=== PATIENT | female | born 1945 | race Caucasian/White ===

== ENCOUNTER → 2017-01-20 | Outpatient (CLI) | payer MEDICARE, BC ==
[~2017-01-20] MED LIST: DIOVAN; LIPITOR; LISINOPRIL20 MG PO; LODINE; NEXIUM PO
--- NOTE | ~2017-01-20 | MY11 ---
[facility] A Service [facility] RADIOLOGY TEXT RESULTS PATIENT: DAQUAN HOLLIDAY LOCATION: [facility] : [birth year] UNIT #: [id number] AGE: [address]: Jaskaran Barraza MD SEX: F ORDER DR: [id number] [facility]. [place], [place] [address] [id number] O MR#: [id number] Acc #: [id number] NAME: DAQUAN HOLLIDAY : 1945 SEX: F STUDY DATE/TIME: 01/20/2017 8:43 UNIT: [facility] ROOM: STUDY DESCRIPTION: MY Mammogram Screening Dig Titus Attending Physician: Jaskaran Barraza M.D. Referring Physician: Jaskaran Barraza M.D. Ordering Physician: Jaskaran Barraza M.D. Primary Care Physician: Jaskaran Barraza M.D. MEDICAL IMAGING REPORT This report is preliminary unless electronic signature is present EXAM Bilateral digital screening mammogram with CAD. DATE 01/20/2017 HISTORY 71-year-old female with a family history of breast cancer. No personal history of breast cancer. No current complaints. COMPARISON Bilateral screening mammogram 01/14/2016, 01/03/2015, 01/15/2014. TECHNIQUE CC and MLO views were obtained of each breast utilizing digital technique and reviewed with an FDA-approved CAD device. FINDINGS Scattered fibroglandular densities are present bilaterally. Nodular densities in the central third of the left breast on the CC view, slightly below the nipple line on the MLO view, are not thought to be significantly changed. No new or suspicious nodules are identified. Benign appearing calcifications are present bilaterally. No architectural distortion. No suspicious clustered microcalcifications. No abnormal skin thickening or nipple retraction. IMPRESSION BIRADS 2, benign findings. Nodular densities within the central left breast appear unchanged compared to a more remote examination from 01/01/2014, in keeping with benign findings. There are no new features to suggest malignancy. Routine bilateral screening mammogram is recommended in 1 year. [facility] A Service [facility] RADIOLOGY TEXT RESULTS PATIENT: DAQUAN HOLLIDAY LOCATION: [facility] : 49 UNIT #: [id number] AGE: [address]: Jaskaran Barraza MD SEX: F ORDER DR: Patients over the age of 40 are entered into a reminder system with target due date for the next mammogram. A result letter will also be sent to the patient. BIRADS: 2 Benign finding. Dictated by... Jazzy Francis M.D. THIS IS AN ELECTRONICALLY VERIFIED REPORT Jazzy Francis M.D. at 01/21/2017 7:03 AM GENESIS/monae TD: 01/20/2017 12:15 JOB #: [id number] MEDICAL IMAGING REPORT Page 1 of 1 COPY
== END | disposition home or self-care (01) ==
LOC: CWCC 08:20
DX: Z12.31 Encounter for screening mammogram for malignant neoplasm of breast (principal); Z80.3 Family history of malignant neoplasm of breast; N63 Unspecified lump in breast
CPT/HCPCS: G0202

== ENCOUNTER → 2017-04-05 | Outpatient (CLI) | payer MEDICARE, BC ==
--- NOTE | ~2017-04-05 | BD1 ---
[facility] A Service of [facility] & [facility] RADIOLOGY TEXT RESULTS PATIENT: DAQUAN HOLLIDAY LOCATION: [facility] : 49 UNIT #: [id number] AGE: [address]: Jaskaran Barraza MD SEX: F ORDER DR: [id number] [facility] [address] [place], [place] [address] [id number] O MR#: [id number] Acc #: [id number] NAME: DAQUAN HOLLIDAY : 1945 SEX: F STUDY DATE/TIME: 04/05/2017 9:52 UNIT: [facility] ROOM: STUDY DESCRIPTION: BD Dexa Bone Dens 1+ Site Attending Physician: Jaskaran Barraza M.D. Ordering Physician: Jaskaran Barraza M.D. Primary Care Physician: Jaskaran Barraza M.D. MEDICAL IMAGING REPORT This report is preliminary unless electronic signature is present EXAM DXA scan 04/05/2017 HISTORY Status post menopause with no hormone replacement therapy. Osteopenia. Hysterectomy at age 37 with removal of both ovaries. Family history of breast carcinoma. Hypertension with blood pressure medication for 10 years. FINDINGS Bone mineral density in the lumbar spine from L1-L4 was 1.034 g/cm2 which is 0.1 standard deviations below the mean when compared to the young adult reference population which is within the range of normal. This is 2 standard deviations above the mean when compared to the age-matched population. Compared with 01/01/2014 there has been an increase in bone mineral density in the lumbar spine of 4.7%. Bone mineral density in the left femoral neck was 0.798 g/cm2 which is 0.5 standard deviations below the mean when compared to the young adult reference population which is within the range of normal. This is 1.3 standard deviations above the mean when compared to the age-matched population. Compared with 01/01/2014 there has been a decrease in bone mineral density in the left hip of 1.4%. IMPRESSION Bone mineral density in the lumbar spine and the left hip within the range of normal. Compared with 01/01/2014 there has been an increase in bone mineral density in the lumbar spine and a decrease in bone mineral density in the left hip. Dictated by... Walter Toussaint M.D. THIS IS AN ELECTRONICALLY VERIFIED REPORT [facility] A Service of [facility] & [facility] RADIOLOGY TEXT RESULTS PATIENT: DAQUAN HOLLIDAY LOCATION: [facility] #: [id number] : 49 UNIT #: [id number] AGE: [address]: Jaskaran Barraza MD SEX: F ORDER DR: Walter Toussanit M.D. at 04/06/2017 8:04 AM HODAN/mauro TD: 04/05/2017 15:16 JOB #: [id number] MEDICAL IMAGING REPORT Page 1 of 1 COPY
== END | disposition home or self-care (01) ==
LOC: CWCC 09:16
DX: Z78.0 Asymptomatic menopausal state (principal)
CPT/HCPCS: 77080